=== PATIENT | male | born 1950 | race Two or more races ===

== ENCOUNTER 2024-07-12 14:05 | Day surgery (SDC) | payer MEDICARE, SELFPAY ==
[2024-07-11 12:29] VITALS: BMI 22.3
[2024-07-12] VITALS (10 sets, daily range): BP systolic 111–138; BP diastolic 66–78; PULSE 60–70; RESP 14–21; TEMP 36.9; O2SAT 95–99; BMI 24.9
[2024-07-12] MEDS: RINGERS LACTATED 1000 ML 1,000 ML 60 ML IV (15:29)
[2024-07-12] MEDS: MIDAZOLAM INJ 1 MG/ML VIAL 2 ML (ASD USE ONLY) 2 MG IV (15:37)
[2024-07-12] MEDS: fentaNYL CIT INJ 50 mCg/ML AMP 2ML (ASD USE ONLY) IV (15:39)
--- NOTE | 2024-07-12 15:52 | SUR.PHASEII ---
PATIENT INTO RECOVERY WITH NO ACUTE DISTRESS NOTED, V/S STABLE, NO COMPLAINTS OF PAIN OR NAUSEA AT THIS TIME, PATIENT REPOSITIONS SELF FOR COMFORT.
== END 2024-07-12 16:39 | disposition home or self-care (01) ==
PROVIDERS: PCP Registered Nurse; Referring Provider Surgery; Visit Provider Surgery
PROC: 0DBE8ZX Excision of Large Intestine, Via Natural or Artificial Opening Endoscopic, Diagnostic (ICD-10-PCS; CPT 45380; principal; 2024-07-12 13:00)
DX: Z12.11 Encounter for screening for malignant neoplasm of colon (principal); Z86.0100 Personal history of colon polyps, unspecified
CPT/HCPCS: G0105; A4217; J2250; J3010; J7120